=== PATIENT | female | born 1940 | race Caucasian/White ===

== ENCOUNTER → 2016-06-26 | Outpatient (CLI) | payer MEDICARE ==
--- NOTE | 2016-06-26 10:35 | MM ---
Reason for exam: follow-up at short interval from prior study. Last mammogram was performed 7 months ago. History: Patient is postmenopausal, has history of breast cancer at age 47, and has history of other cancer at age 32. Family history of breast cancer in maternal cousin at age 50. Stereotactic core biopsy of the right breast, November 05, 2002. Excisional biopsy of the right breast, 1999. Mastectomy of the left breast, 1988. Core biopsy of the right breast. Physical Findings: Nurse did not find any significant physical abnormalities on exam. MG 3D Diag Mammo W/Cad RT CC and MLO view(s) were taken of the right breast. Prior study comparison: November 29, 2015, right breast MG 3d diag mammo w/cad RT. April 17, 2015, right breast MG 3d diag mammo w/cad RT. There are scattered fibroglandular densities. No significant new findings when compared with previous films. These results were verbally communicated with the patient and result sheet given to the patient on 06/26/16. ASSESSMENT: Benign, BI-RAD 2 RECOMMENDATION: Follow-up diagnostic mammogram of the right breast in 1 year.
== END ==
LOC: RADMAMWWP 09:59
PROVIDERS: ATTEND Surgery
DX: Z85.3 Personal history of malignant neoplasm of breast (principal)
CPT/HCPCS: G0206; G0279

== ENCOUNTER → 2018-09-11 | Outpatient (CLI) | payer MEDICARE ==
--- NOTE | 2018-09-14 08:52 | MM ---
Reason for exam: additional evaluation requested from prior study. Last mammogram was performed 2 years and 3 months ago. History: Patient is postmenopausal, has history of breast cancer at age 47, and has history of other cancer at age 32. Family history of breast cancer in maternal cousin at age 50. Stereotactic core biopsy of the right breast, November 05, 2002. Excisional biopsy of the right breast, 1999. Mastectomy of the left breast, 1988. Core biopsy of the right breast. Physical Findings: Nurse did not find any significant physical abnormalities on exam. MG 3D Diag Mammo W/Cad RT CC, MLO, and ML view(s) were taken of the right breast. Prior study comparison: June 26, 2016, right breast MG 3d diag mammo w/cad RT. November 29, 2015, right breast MG 3d diag mammo w/cad RT. The breast tissue is heterogeneously dense. This may lower the sensitivity of mammography. There is a stable right lower inner quadrant mass back to 2013. Benign calcifications in the right breast. No suspicious abnormality. Post excisional biopsy change on the right. These results were verbally communicated with the patient and result sheet given to the patient on 09/11/18. ASSESSMENT: Benign, BI-RAD 2 RECOMMENDATION: Routine screening mammogram of both breasts in 1 year.
--- NOTE | 2018-09-15 13:28 | BD ---
EXAMINATION TYPE: Axial Bone Density DATE OF EXAM: 09/11/2018 COMPARISON: 07.05.2011 CLINICAL HISTORY: 77 YR OLD FEMALE....ICD-10 CODE: Z13.820 OSTEOPOROSIS SCREENING Height: 66 Weight: 141 FRAX RISK QUESTIONS: Secondary Osteoporosis: YES 3. Menopause before 45: YES AT AGE 42 RISK FACTORS HISTORY OF: Active: YES Postmenopausal woman: YES AT AGE 42 Lost more than 2 inches in height since high school: YES MEDICATIONS: Thyroid Medications: YES, SYNTHROID, SINCE AGE 32 YRS OLD Additional Medications: BP MEDS, STATIN FOR CHOLESTEROL, MICROPLANT POWDER WITH D AND CALCIUM INCLUDE D Additional History: HX OF BREAST CANCER, THYROID CANCER, HYPERTENSION, CHOLESTEROL, OSTEO ARTHRITI S EXAM MEASUREMENTS: Bone mineral densitometry was performed using the [employer] System. Bone mineral density as measured about the Lumbar spine is: ----- L1-L4(G/cm2): 1.068 T Score Values are as follows: ----- L1: -2.2 ----- L2: -1.6 ----- L3: -0.2 ----- L4: 0.0 ----- L1-L4: -0.9 Bone mineral density has: Increased 3.4% since study of: 07.05.2011 Bone mineral density about the R hip (g/cm2): 0.746 Bone mineral density about the L hip (g/cm2): 0.796 T Score values are as follows: -----R Neck: -1.8 -----L Neck: -1.8 -----R Total: -2.1 -----L Total: -1.7 Bone mineral density has: Decreased -1.3% since study of: 07.05.2011 FRAX%s THERE IS A 13.0% CHANCE FOR A MAJOR OSTEOPOROTIC FX AND 3.6% FOR HIP.....PROBABILITY FOR FX IN 10 YR TIME IMPRESSION: Osteopenia (T Score between -2.5 and -1) remains present in both hips and at 2 consecutive levels in the low back. Bone density slightly decreased or diminished in both hips from prior study. There remains slightly increased risk of fracture and the patient may be considered for treatment. Re-Screen 2-5 years. NOTE: T-SCORE=SD OF THE YOUNG ADULT MEAN.
== END | disposition home or self-care (01) ==
LOC: RADBDWWP 13:47
PROVIDERS: ATTEND Family Medicine
DX: C50.919 Malignant neoplasm of unspecified site of unspecified female breast (principal); M85.851 Other specified disorders of bone density and structure, right thigh; M85.852 Other specified disorders of bone density and structure, left thigh; M85.88 Other specified disorders of bone density and structure, other site
CPT/HCPCS: 77080; 77065; G0279; 77061